=== PATIENT | female | born 1990 | race African-American/Black ===

== ENCOUNTER 2017-02-10 11:53 | Observation (INO) | payer MEDICAID ==
[~2017-02-10] VITALS: Ht 172.7 cm; Wt 72.6 kg
[2017-02-10] MEDS ORDERED: ACETAMINOPHEN 500MG TABLET PO NR (12:00)
[2017-02-10] MEDS ORDERED: LACTATED RINGERS 1,000 ML IV SCH (12:00)
[2017-02-10] MEDS ORDERED: ONDANSETRON HCL 4MG/2ML VIAL IV NR (12:00)
[2017-02-10 12:51] LABS: CLARITY URINE CLEAR (CLEAR); COLOR URINE YELLOW (YELLOW); GLUCOSE URINE NEGATIVE (NEGATIVE); KETONES URINE NEGATIVE (NEGATIVE); LEUKOCYTE ESTERASE URINE 2+ (NEGATIVE); NITRITE URINE NEGATIVE (NEGATIVE); OCCULT BLOOD URINE NEGATIVE (NEGATIVE); PH URINE 6.5 (4.5-8.0); PROTEIN URINE NEGATIVE (NEGATIVE); SPECIFIC GRAVITY URINE 1.016 (1.005-1.030)
[2017-02-10 13:14] LABS: BACTERIA URINE TRACE; RBC URINE 0-2 /hpf (0-2); SQUAMOUS EPITHELIAL CELL URINE 2+ /lpf (RARE/1+)
== END 2017-02-10 13:50 | disposition home or self-care (01) ==
LOC: L&D 11:53
PROVIDERS: ADMIT Obstetrics & Gynecology; ATTEND Obstetrics & Gynecology
DX: O26.893 Other specified pregnancy related conditions, third trimester (principal); R10.9 Unspecified abdominal pain; Z3A.34 34 weeks gestation of pregnancy
CPT/HCPCS: 81001; 96361; 96374; 99281; G0378; J2405; J7120; 96360; G0379

== ENCOUNTER → 2018-06-21 | Outpatient (CLI) | payer BC | END | disposition home or self-care (01) | LOC: RAD 14:45 | PROVIDERS: ATTEND Obstetrics & Gynecology | DX: Z34.81 Encounter for supervision of other normal pregnancy, first trimester (principal); Z3A.13 13 weeks gestation of pregnancy | CPT/HCPCS: 76801 ==

== ENCOUNTER → 2018-09-03 | Outpatient (CLI) | payer BC | END | disposition home or self-care (01) | LOC: US 14:09 | PROVIDERS: ATTEND Obstetrics & Gynecology | DX: O26.842 Uterine size-date discrepancy, second trimester (principal); O36.5920 Maternal care for other known or suspected poor fetal growth, second trimester, not applicable or unspecified; Z3A.24 24 weeks gestation of pregnancy | CPT/HCPCS: 76805 ==

== ENCOUNTER 2018-10-07 21:56 | Observation (INO) | payer BC ==
[~2018-10-07] VITALS: Ht 175.3 cm; Wt 95.5 kg
[2018-10-07 21:58] VITALS: BP 101/69
[2018-10-08] MEDS ORDERED: PNV1TABL76 MT (00:07)
[2018-10-08] MEDS ORDERED: ONDANSETRON HCL 4MG/2ML INJ IV NR (00:15)
[2018-10-08] MEDS ORDERED: LACTATED RINGERS 1,000 ML IV SCH (00:15)
== END 2018-10-08 02:45 | disposition home or self-care (01) ==
LOC: ER 21:56 → L&D 23:43 → UNDOADMOB 23:43 → UNDODISOB 10-08 02:45
PROVIDERS: ADMIT Obstetrics & Gynecology; ATTEND Obstetrics & Gynecology
DX: O21.2 Late vomiting of pregnancy (principal); O26.893 Other specified pregnancy related conditions, third trimester; R42 Dizziness and giddiness; Z3A.29 29 weeks gestation of pregnancy
CPT/HCPCS: 36415; 80051; 96361; 96374; 99281; G0378; J2405; 96360

== ENCOUNTER 2018-12-15 04:42 | Inpatient (IN) | payer BC ==
[~2018-12-15] VITALS: Ht 167.6 cm; Wt 89.8 kg
[~2018-12-15 04:42] MED LIST: PNV1TABL76 MT
[2018-12-15] MEDS ORDERED: DEXT 5%/LR + PITOCIN 20UNITS/L 1,000 ML IV SCH ×2 (05:10→07:57)
[2018-12-15] MEDS ORDERED: CARBOPROST TROMETHAMINE 250 MCG/ML AMPUL IM PRN (05:15)
[2018-12-15] MEDS ORDERED: MISOPROSTOL 100MCG TABLET VG SCH (05:15)
[2018-12-15] MEDS ORDERED: LIDOCAINE HCL 1% 20ML VIAL (Pyxis) INJ INFIL SCH (05:15)
[2018-12-15] MEDS ORDERED: AMPICILLIN 2,000 MG in SODIUM CHLORIDE 0.9% 100 ML IV NR (05:15)
[2018-12-15] MEDS ORDERED: NALOXONE HCL 0.4 MG/ML 1ML VIAL IM PRN (05:15)
[2018-12-15] MEDS ORDERED: BUTORPHANOL TARTRATE 2 MG/ML VIAL IV PRN (05:15)
[2018-12-15] MEDS ORDERED: RHO(D) IMMUNE GLOBULIN 300 MCG/SYR IM ONE (05:15)
[2018-12-15] MEDS ORDERED: METHYLERGONOVINE MALEATE 0.2 MG/ML IM PRN (05:15)
[2018-12-15] MEDS: LACTATED RINGERS 1,000 ML IV SCH ×2 (05:43→05:58)
[2018-12-15] MEDS ORDERED: BUPIVACAINE HCL/PF 0.25% (2.5MG/ML) 10ML ONE (05:48)
[2018-12-15] MEDS ORDERED: BUPIVACAINE HCL/NS/PF EPIDURAL 100 ML EP ONE ×2 (05:48→08:45)
[2018-12-15] MEDS ORDERED: FENTANYL CITRATE/PF 50MCG/ML 5ML VIAL ONE (05:48)
[2018-12-15 05:51] LABS: INR 0.9; PARTIAL THROMBOPLASTIN TIME 27.5 sec (23.4-31.0); PROTHROMBIN TIME 9.4 sec (9.1-11.1)
[2018-12-15 05:53] LABS: BASOPHILS % 0.6 % (0.0-2.0); EOSINOPHILS % 1.6 % (0.0-5.0); HEMATOCRIT. 33.1 % (36.0-48.0); HEMOGLOBIN. 11.1 g/dL (12.0-16.0); LYMPHOCYTES % 23.2 % (20.0-50.0); MEAN CORPUSCULAR HEMOGLOBIN 26.7 pg (28.0-32.0); MEAN PLATELET VOLUME 9.4 fl (7.4-10.4); MONOCYTES % 6.6 % (2.0-8.0); PLATELET 252 x1000/uL (130-400); RED BLOOD CELL COUNT 4.14 mill/uL (4.2-5.4); RED CELL DISTRIBUTION WIDTH 17.5 % (11.6-14.6)
[2018-12-15 06:47] LABS: HEPATITIS B SURFACE ANTIGEN NEGATIVE
[2018-12-15] MEDS ORDERED: RHO(D) IMMUNE GLOBULIN 300 MCG/SYR IM PRN (08:00)
[2018-12-15] MEDS ORDERED: IBUPROFEN 400MG TABLET PO PRN (08:00)
[2018-12-15] MEDS ORDERED: BENZOCAINE/LANOLIN/ALOE VERA SPRAY TOP PRN (08:00)
[2018-12-15 10:00] VITALS: BP 112/60
[2018-12-15] MEDS ORDERED: AMPICILLIN 1,000 MG in SODIUM CHLORIDE 0.9% 50 ML IV SCH (12:00)
[2018-12-15 12:42] LABS: BASOPHILS % 0.3 % (0.0-2.0); EOSINOPHILS % 0.8 % (0.0-5.0); HEMATOCRIT. 30.3 % (36.0-48.0); HEMOGLOBIN. 10.1 g/dL (12.0-16.0); LYMPHOCYTES % 9.7 % (20.0-50.0); MEAN CORPUSCULAR HEMOGLOBIN 26.9 pg (28.0-32.0); MEAN CORPUSCULAR VOLUME 80.7 fL (81.0-99.0); MEAN PLATELET VOLUME 9.2 fl (7.4-10.4); MONOCYTES % 5.2 % (2.0-8.0); PLATELET 216 x1000/uL (130-400); RED BLOOD CELL COUNT 3.76 mill/uL (4.2-5.4); RED CELL DISTRIBUTION WIDTH 16.9 % (11.6-14.6)
[2018-12-15 13:51] VITALS: BP 115/76
[2018-12-15] MEDS: IBUPROFEN 800MG TABLET PO PRN (15:36)
[2018-12-15] MEDS: CALCIUM CARBONATE 500MG TABLET CHEW PO SCH (17:30)
[2018-12-15 17:59] VITALS: BP 115/76
[2018-12-15 20:00] VITALS: BP 101/59
[2018-12-15 21:50] VITALS: BP 101/59
[2018-12-16] MEDS: IBUPROFEN 800MG TABLET PO PRN ×2 (00:22→20:44)
[2018-12-16 06:39] VITALS: BP 107/59
[2018-12-16] MEDS: CALCIUM CARBONATE 500MG TABLET CHEW PO SCH ×4 (07:30→17:30)
[2018-12-16 08:00] VITALS: BP 102/63
[2018-12-16] MEDS: ACETAMINOPHEN WITH CODEINE 300/30MG TABLET PO PRN ×2 (09:40→14:58)
[2018-12-16 14:46] VITALS: BP 96/58
[2018-12-16 15:39] LABS: BASOPHILS % 0.5 % (0.0-2.0); EOSINOPHILS % 1.8 % (0.0-5.0); HEMATOCRIT. 28.7 % (36.0-48.0); HEMOGLOBIN. 9.4 g/dL (12.0-16.0); LYMPHOCYTES % 26.4 % (20.0-50.0); MEAN CORPUSCULAR HEMOGLOBIN 26.5 pg (28.0-32.0); MONOCYTES % 5.6 % (2.0-8.0); NEUTROPHILS % 65.7 % (40.0-76.0); PLATELET 220 x1000/uL (130-400); RED BLOOD CELL COUNT 3.55 mill/uL (4.2-5.4); RED CELL DISTRIBUTION WIDTH 17.4 % (11.6-14.6)
[2018-12-16 20:00] VITALS: BP 115/70
[2018-12-17] VITALS: BP 112/68
[2018-12-17 04:00] VITALS: BP 115/66
[2018-12-17] MEDS: ACETAMINOPHEN WITH CODEINE 300/30MG TABLET PO PRN ×2 (06:57→15:34)
[2018-12-17 08:00] VITALS: BP 112/67
[2018-12-17] MEDS ORDERED: TETANUS, DIPHTHERIA, PERTUSSIS VAC/PF 0.5ML (>7YR OLD) IM ONE (09:00)
== END 2018-12-17 17:30 | disposition home or self-care (01) | DRG 807 ==
LOC: 8 EST LDRP 04:42 → OBSVTOIN 04:42 → 8EST 10:34
PROVIDERS: ADMIT Obstetrics & Gynecology; ATTEND Obstetrics & Gynecology
PROC: 10E0XZZ Delivery of Products of Conception, External Approach (ICD-10-PCS; principal; 2018-12-15)
PROC: 0KQM0ZZ Repair Perineum Muscle, Open Approach (ICD-10-PCS; 2018-12-15)
PROC: 3E0R3BZ Introduction of Anesthetic Agent into Spinal Canal, Percutaneous Approach (ICD-10-PCS; 2018-12-15)
PROC: 00HU33Z Insertion of Infusion Device into Spinal Canal, Percutaneous Approach (ICD-10-PCS; 2018-12-15)
DX: O77.0 Labor and delivery complicated by meconium in amniotic fluid (principal); Z37.0 Single live birth; O70.1 Second degree perineal laceration during delivery; Z3A.38 38 weeks gestation of pregnancy; O90.81 Anemia of the puerperium; D64.9 Anemia, unspecified
CPT/HCPCS: 36415; 86592; 86703; 86762; 86850; 86900; 87340; 90715; 99281; J0290; J0595; J2590; J3010; J3490; J7050; J7120; A4315

== ENCOUNTER → 2019-04-18 | Outpatient (CLI) | payer BC ==
[2019-04-18 09:36] LABS: BASOPHILS % 1.1 % (0.0-2.0); EOSINOPHILS % 3.5 % (0.0-5.0); HEMATOCRIT. 37.8 % (36.0-48.0); HEMOGLOBIN. 12.5 g/dL (12.0-16.0); LYMPHOCYTES % 34.1 % (20.0-50.0); MEAN CORPUSCULAR HEMOGLOBIN 27.9 pg (28.0-32.0); MEAN CORPUSCULAR VOLUME 84.1 fL (81.0-99.0); MEAN PLATELET VOLUME 10.6 fl (7.4-10.4); NEUTROPHILS % 55.3 % (40.0-76.0); PLATELET 214 x1000/uL (130-400); RED CELL DISTRIBUTION WIDTH 15.9 % (11.6-14.6)
[2019-04-18 09:47] LABS: CHLORIDE 106 mEq/L (98-107)
[2019-04-18 09:54] LABS: LDL CHOLESTEROL 87 mg/dL (5-100)
[2019-04-18 09:56] LABS: HDL CHOLESTEROL 56 mg/dL (40-59)
[2019-04-22 04:14] LABS: 25-HYDROXY VITAMIN D3 13 ng/mL (.)
== END | disposition home or self-care (01) ==
LOC: LAB 08:01
PROVIDERS: ATTEND Obstetrics & Gynecology
DX: E78.00 Pure hypercholesterolemia, unspecified (principal); E78.49 Other hyperlipidemia; E55.9 Vitamin D deficiency, unspecified; D64.9 Anemia, unspecified
CPT/HCPCS: 36415; 80061; 82306; 83036; 84443